=== PATIENT | female | born 1995 | race African-American/Black ===

== ENCOUNTER 2017-06-07 18:53 | Outpatient (CLI) | payer OTHER ==
[2017-06-07] MEDS ORDERED: RINGERS SOLUTION,LACTATED 1,000 ML IV PRN (19:34)
[2017-06-07 20:01] LABS: APPEARANCE,URINE SLIGHTLY-CLOUDY; BILIRUBIN,URINE NEGATIVE (NEGATIVE); GLUCOSE, URINE 50 mg/dL (NEGATIVE); KETONES,URINE NEGATIVE (NEGATIVE); LEUKOCYTE ESTERASE,URINE LARGE (NEGATIVE); NITRITE,URINE NEGATIVE (NEGATIVE); PROTEIN,URINE NEGATIVE (NEGATIVE); URINE SPECIFIC GRAVITY 1.016
[2017-06-07 20:27] LABS: URINE BARBITURATES SCREEN NEGATIVE; URINE METHADONE SCREEN NEGATIVE; URINE OPIATES LOW NEGATIVE; URINE PHENCYCLIDINE SCREEN NEGATIVE
--- NOTE | 2017-06-07 20:53 | Non Stress Test Report ---
Non Stress Test Datetime Report Generated by CPN: 06/07/2017 20:53 DEMOGRAPHIC EGA NST: 32.5 INDICATION Indication for Study: Ordered by Provider MONITORING Monitor Explained: Monitor Explained; Test Explained; Patient Verbalized Understanding Time on Monitor: 06/07/2017 19:13 Time off Monitor: 06/07/2017 20:38 NST Duration: 85 NST INTERVENTIONS NST Interventions: PO Hydration; Reposition Patient Physician Notified NST: Dr. Donato BABY A: [id number] BABY A Movement : Present Contraction Frequency : Irregular FHR Baseline : 135 Accelerations : 15X15 Decelerations : None Variability : Moderate 6-25bpm NST Review: Meets Criteria for Reactive NST NST Review and Verified By : Van Arnett RN NST Results: Reactive NST REPORT Report Trigger: Send Report
== END 2017-06-07 20:45 | disposition home or self-care (01) ==
LOC: LC 18:53
PROVIDERS: ATTEND Obstetrics & Gynecology
PROC: 4A1HXCZ Monitoring of Products of Conception, Cardiac Rate, External Approach (ICD-10-PCS; principal; 2017-06-07)
DX: Z34.93 Encounter for supervision of normal pregnancy, unspecified, third trimester (principal)
CPT/HCPCS: 59025; 80307; 81001

== ENCOUNTER 2017-07-13 16:38 | Outpatient (CLI) | payer OTHER ==
--- NOTE | 2017-07-13 17:54 | Non Stress Test Report ---
Non Stress Test Datetime Report Generated by CPN: 07/13/2017 17:54 DEMOGRAPHIC EGA NST: 37.6 EGA NST: 35.0 INDICATION Indication for Study: Decreased Movement Indication for Study: Ordered by Provider MONITORING Monitor Explained: Monitor Explained; Test Explained; Patient Verbalized Understanding Monitor Explained: Monitor Explained; Test Explained; Patient Verbalized Understanding Monitor Explained Other: see flowsheet Time on Monitor: 07/13/2017 16:51 Time on Monitor: 06/23/2017 18:03 Time off Monitor: 07/13/2017 17:46 Time off Monitor: 06/23/2017 18:29 NST Duration: 55 NST Duration: 26 NST INTERVENTIONS NST Interventions: PO Hydration NST Interventions: PO Hydration; Reposition Patient Physician Notified NST: CDemian CNM Physician Notified NST: Dr. Yusuf BABY A: [id number] BABY A Movement : Present Movement : Present Contraction Frequency : occasional FHR Baseline : 135 Accelerations : 15X15 Decelerations : None Decelerations : None Variability : Moderate 6-25bpm Variability : Moderate 6-25bpm NST Review: Meets Criteria for Reactive NST NST Results: Reactive NST REPORT Report Trigger: Send Report
== END 2017-07-13 17:49 | disposition home or self-care (01) ==
LOC: LC 16:38
PROVIDERS: ATTEND Obstetrics & Gynecology
PROC: 4A1HXCZ Monitoring of Products of Conception, Cardiac Rate, External Approach (ICD-10-PCS; principal; 2017-07-13)
DX: O36.8130 Decreased fetal movements, third trimester, not applicable or unspecified (principal); Z3A.37 37 weeks gestation of pregnancy
CPT/HCPCS: 59025

== ENCOUNTER 2017-07-22 08:38 | Outpatient (CLI) | payer SELFPAY ==
[2017-07-22 09:18] LABS: APPEARANCE,URINE SLIGHTLY-CLOUDY; BILIRUBIN,URINE NEGATIVE (NEGATIVE); GLUCOSE, URINE NEGATIVE (NEGATIVE); KETONES,URINE NEGATIVE (NEGATIVE); LEUKOCYTE ESTERASE,URINE NEGATIVE (NEGATIVE); NITRITE,URINE NEGATIVE (NEGATIVE); PROTEIN,URINE NEGATIVE (NEGATIVE); URINE SPECIFIC GRAVITY 1.013; UROBILINOGEN,URINE NEGATIVE mg/dL (<2.0)
[2017-07-22 09:33] LABS: URINE BARBITURATES SCREEN NEGATIVE; URINE METHADONE SCREEN NEGATIVE; URINE OPIATES LOW NEGATIVE; URINE PHENCYCLIDINE SCREEN NEGATIVE
--- NOTE | 2017-07-22 11:14 | Non Stress Test Report ---
Non Stress Test Datetime Report Generated by CPN: 07/22/2017 11:14 DEMOGRAPHIC Test Number: 2 EGA NST: 39.1 INDICATION Indication for Study: Other Indication for Study (NST) Other: Contractions MONITORING Monitor Explained: Monitor Explained; Test Explained; Patient Verbalized Understanding Time on Monitor: 07/22/2017 08:54 Time off Monitor: 07/22/2017 09:43 NST Duration: 49 NST INTERVENTIONS NST Interventions: PO Hydration Physician Notified NST: Dr. Rashawn BABY A: [id number] BABY A Movement : Present Contraction Frequency : 5-7 FHR Baseline : 140 Accelerations : 15X15 Decelerations : None Variability : Moderate 6-25bpm NST Review: Meets Criteria for Reactive NST NST Review and Verified By : Charly Sesay RN NST Results: Reactive NST REPORT Report Trigger: Send Report
== END 2017-07-22 10:56 | disposition home or self-care (01) ==
LOC: LC 08:38
PROVIDERS: ATTEND Obstetrics & Gynecology
PROC: 4A1HXCZ Monitoring of Products of Conception, Cardiac Rate, External Approach (ICD-10-PCS; principal; 2017-07-22)
DX: O47.1 False labor at or after 37 completed weeks of gestation (principal); Z3A.39 39 weeks gestation of pregnancy
CPT/HCPCS: 59025; 80307; 81005

== ENCOUNTER 2017-07-23 21:32 | Outpatient (CLI) | payer OTHER ==
[2017-07-23 22:07] LABS: BILIRUBIN,URINE NEGATIVE (NEGATIVE); GLUCOSE, URINE NEGATIVE (NEGATIVE); KETONES,URINE NEGATIVE (NEGATIVE); LEUKOCYTE ESTERASE,URINE LARGE (NEGATIVE); NITRITE,URINE NEGATIVE (NEGATIVE); PROTEIN,URINE 30 mg/dL (NEGATIVE); URINE SPECIFIC GRAVITY 1.014
[2017-07-23 22:10] LABS: APPEARANCE,URINE SLIGHTLY HAZY
[2017-07-23 22:26] LABS: URINE BARBITURATES SCREEN NEGATIVE; URINE METHADONE SCREEN NEGATIVE; URINE OPIATES LOW NEGATIVE; URINE PHENCYCLIDINE SCREEN NEGATIVE
== END 2017-07-23 23:02 | disposition home or self-care (01) ==
LOC: LC 21:32
PROVIDERS: ATTEND Obstetrics & Gynecology
PROC: 4A1HXCZ Monitoring of Products of Conception, Cardiac Rate, External Approach (ICD-10-PCS; principal; 2017-07-23)
DX: O47.1 False labor at or after 37 completed weeks of gestation (principal); Z3A.39 39 weeks gestation of pregnancy
CPT/HCPCS: 59025; 80307; 81005

== ENCOUNTER 2017-07-24 22:15 | Outpatient (CLI) | payer OTHER ==
--- NOTE | 2017-07-24 22:20 | Non Stress Test Report ---
Non Stress Test Datetime Report Generated by CPN: 07/24/2017 22:20 DEMOGRAPHIC EGA NST: 39.2 INDICATION Indication for Study: Ordered by Provider MONITORING Monitor Explained: Monitor Explained; Test Explained; Patient Verbalized Understanding Time on Monitor: 07/23/2017 21:46 Time off Monitor: 07/23/2017 22:22 NST Duration: 36 NST INTERVENTIONS NST Interventions: PO Hydration Physician Notified NST: Dr. Rashawn BABY A: [id number] BABY A Movement : Present Contraction Frequency : 5 FHR Baseline : 150 Accelerations : 15X15 Decelerations : None Variability : Moderate 6-25bpm NST Review: Meets Criteria for Reactive NST NST Review and Verified By : KARMA WYLIE Results: Reactive NST REPORT Report Trigger: Send Report
[2017-07-24 22:48] LABS: APPEARANCE,URINE SLIGHTLY-CLOUDY; BILIRUBIN,URINE NEGATIVE (NEGATIVE); GLUCOSE, URINE NEGATIVE (NEGATIVE); KETONES,URINE NEGATIVE (NEGATIVE); LEUKOCYTE ESTERASE,URINE TRACE (NEGATIVE); NITRITE,URINE NEGATIVE (NEGATIVE); PROTEIN,URINE 30 mg/dL (NEGATIVE); URINE SPECIFIC GRAVITY 1.021; UROBILINOGEN,URINE NEGATIVE mg/dL (<2.0)
[2017-07-24 22:50] LABS: AMNISURE (ROM) NEGATIVE (NEGATIVE)
[2017-07-24 22:58] LABS: URINE BARBITURATES SCREEN NEGATIVE; URINE METHADONE SCREEN NEGATIVE; URINE OPIATES LOW NEGATIVE; URINE PHENCYCLIDINE SCREEN NEGATIVE
--- NOTE | 2017-07-24 23:37 | Non Stress Test Report ---
Non Stress Test Datetime Report Generated by CPN: 07/24/2017 23:37 DEMOGRAPHIC Test Number: 5 EGA NST: 39.3 INDICATION Indication for Study: Ordered by Provider VITAL SIGNS Temperature - NST: 98.3 RESP - NST: 18 URINE RESULTS Urine Protein, NST: Positive Urine Ketones - NST: Negative Urine Glucose - NST: Negative Urine Blood - NST: Negative MONITORING Monitor Explained: Monitor Explained; Test Explained; Patient Verbalized Understanding Time on Monitor: 07/24/2017 22:39 Time off Monitor: 07/24/2017 22:34 NST Duration: -5 NST INTERVENTIONS NST Interventions: PO Hydration Physician Notified NST: Dr Yusuf BABY A Movement : Present Contraction Frequency : Irregular FHR Baseline : 120 Accelerations : 15X15 Decelerations : None Variability : Moderate 6-25bpm NST Review and Verified By : Jaleel Davis, RN NST Results: Reactive NST REPORT Report Trigger: Send Report
== END 2017-07-24 23:39 | disposition home or self-care (01) ==
LOC: LC 22:15
PROVIDERS: ATTEND Student in an Organized Health Care Education/Training Program
PROC: 4A1HXCZ Monitoring of Products of Conception, Cardiac Rate, External Approach (ICD-10-PCS; principal; 2017-07-24)
DX: O47.1 False labor at or after 37 completed weeks of gestation (principal); Z3A.39 39 weeks gestation of pregnancy
CPT/HCPCS: 59025; 80307; 81001; 84112

== ENCOUNTER 2017-07-28 01:59 | Inpatient (IN) | payer OTHER ==
[2017-07-28] MEDS ORDERED: ONDANSETRON 4 MG TAB.RAPDIS ONE (02:50)
[2017-07-28 02:57] LABS: APPEARANCE,URINE CLEAR; BILIRUBIN,URINE NEGATIVE (NEGATIVE); GLUCOSE, URINE NEGATIVE (NEGATIVE); KETONES,URINE NEGATIVE (NEGATIVE); LEUKOCYTE ESTERASE,URINE TRACE (NEGATIVE); NITRITE,URINE NEGATIVE (NEGATIVE); PROTEIN,URINE NEGATIVE (NEGATIVE); URINE SPECIFIC GRAVITY 1.006; UROBILINOGEN,URINE NEGATIVE mg/dL (<2.0)
[2017-07-28 02:59] LABS: URINE BARBITURATES SCREEN NEGATIVE; URINE METHADONE SCREEN NEGATIVE; URINE OPIATES LOW NEGATIVE; URINE PHENCYCLIDINE SCREEN NEGATIVE
[2017-07-28] MEDS ORDERED: HYDROXYZINE PAMOATE 50 MG CAPSULE ONE (03:28)
[2017-07-28] MEDS ORDERED: MORPHINE SULFATE 10 MG/ML INJ ONE (03:40)
[2017-07-28] MEDS ORDERED: MISOPROSTOL 0.2 MG TABLET ONE (03:47)
[2017-07-28] MEDS ORDERED: LIDOCAINE 1% INJ-PF (10 MG/ML) 30 ML SDV ONE (03:47)
[2017-07-28] MEDS ORDERED: OXYTOCIN/NORMAL SALINE 20 UNIT/1,000 ML RTUINJ ONE (03:47)
[2017-07-28] MEDS ORDERED: OXYTOCIN 10 UNIT/ML VIAL ONE (03:47)
[2017-07-28] MEDS ORDERED: RINGERS SOLUTION,LACTATED 1,000 ML IV PRN (03:50)
[2017-07-28] MEDS ORDERED: RINGERS SOLUTION,LACTATED 1,000 ML IV ONE (03:50)
[2017-07-28] MEDS ORDERED: EPHEDRINE SULFATE INJ 50 MG/1 ML AMPULE ONE (04:19)
[2017-07-28 04:20] LABS: ABSOLUTE BASOPHILS # (AUTO) 0.1 10^3/uL (0.0-0.2); ABSOLUTE EOSINOPHILS # (AUTO) 0.1 10^3/uL (0.0-0.6); ABSOLUTE LYMPHOCYTES (AUTO) 2.4 10^3/uL (0.5-4.7); ABSOLUTE MONOCYTES (AUTO) 0.7 10^3/uL (0.1-1.4); ABSOLUTE NEUT (AUTO) 7.2 10^3/uL (1.7-8.2); BASOPHILS % (AUTO) 0.7 % (0-2); EOSINOPHILS % (AUTO) 1.1 % (0-6); HEMATOCRIT 28.4 % (36.0-47.0); HEMOGLOBIN 9.1 g/dL (12.0-15.5); HGB HCT DIFFERENCE -1.1; LYMPHOCYTES % (AUTO) 23.1 % (13-45); MEAN CORPUSCULAR HEMOGLOBIN 28.6 pg (27.0-33.4); MEAN CORPUSCULAR HGB CONC 32.2 g/dL (32.0-36.0); MEAN CORPUSCULAR VOLUME 89 fl (80-97); MONOCYTES % (AUTO) 6.4 % (3-13); RED CELL DISTRIBUTION WIDTH 18.6 % (11.5-14.0); SEGMENTED NEUTROPHILS % (AUTO) 68.7 % (42-78); WHITE BLOOD COUNT 10.5 10^3/uL (4.0-10.5)
[2017-07-28] MEDS ORDERED: BUPIVACAINE HCL 0.25 % INJ/PF (2.5 MG/1 ML) 30 ML VIAL ONE (04:20)
[2017-07-28] MEDS ORDERED: FENTANYL/BUPIVACAINE/NS/PF 200 MCG/100 ML RTUINJ EPI ONE (04:20)
[2017-07-28] MEDS ORDERED: DIBUCAINE 1% OINTMENT 28 GM TP PRN (07:06)
[2017-07-28] MEDS ORDERED: OXYTOCIN/NORMAL SALINE 20 UNIT/1,000 ML RTUINJ IV PRN (07:06)
[2017-07-28] MEDS ORDERED: ACETAMINOPHEN 650 MG SUPP.RECT PR PRN (07:06)
[2017-07-28] MEDS ORDERED: DIPH/PERTUSS(ACELL)/TETANUS VAC/PF 0.5 ML SYR (>=10YO) IM PRN (07:06)
[2017-07-28] MEDS ORDERED: PROMETHAZINE HCL 25 MG SUPP.RECT PR PRN (07:06)
[2017-07-28] MEDS ORDERED: GLYCERIN/WITCH HAZEL LEAF 1 EACH MED..PAD TP PRN (07:06)
[2017-07-28] MEDS ORDERED: NA PHOS,M-B/NA PHOS,DI-BA (ADULT) 133 ML ENEMA PR PRN (07:06)
[2017-07-28] MEDS ORDERED: PROMETHAZINE HCL INJ 25 MG/1 ML VIAL IV PRN (07:06)
[2017-07-28] MEDS ORDERED: ZOLPIDEM TARTRATE 5 MG TABLET PO PRN (07:06)
[2017-07-28] MEDS ORDERED: DIPHENHYDRAMINE HCL 25 MG CAPSULE PO PRN (07:06)
[2017-07-28] MEDS ORDERED: PSEUDOEPHEDRINE HCL 30 MG TABLET PO PRN (07:06)
[2017-07-28] MEDS ORDERED: MEASLES,MUMPS&RUBELLA VACC/PF 0.5 ML VIAL SUBCUT PRN (07:06)
[2017-07-28] MEDS ORDERED: MAGNESIUM HYDROXIDE SUSP 30 ML UDCUP PO PRN (07:06)
[2017-07-28] MEDS ORDERED: BENZOCAINE/MENTHOL AEROSOL SPRAY 56 ML TOP PRN (07:06)
[2017-07-28] MEDS ORDERED: ACETAMINOPHEN WITH CODEINE #3 TABLET PO PRN (07:06)
[2017-07-28] MEDS ORDERED: PROMETHAZINE HCL 25 MG TABLET PO PRN (07:06)
--- NOTE | 2017-07-28 09:06 | Delivery Summary ---
Del Sum A-C Datetime Report Generated by CPN: 07/28/2017 09:05 DELIVERY PERSONNEL DELIVERY PERSONNEL: [id number] Delivery Doctor:: Sandra Morocho MD Labor and Delivery Nurse:: Xiomara Isaac RN Labor and Delivery Nurse:: Adeola Swan RN Manager Electronic/FUNERAL ARRANGER: Tiffany Wilfredo, ST MATERNAL INFORMATION Delivery Anesthesia: Epidural Medications After Delivery: Pitocin Bolus-Please Comment Meds After Delivery Comment: Pitocin 20units/1000ml bolused after delivery per protocol. Estimated Blood Loss (ml): 150 Maternal Complications: None LABOR SUMMARY EDC: 07/28/2017 00:00 No. Babies in Womb: 1 Attempted: No Labor Anesthesia: Epidural LABOR INFORMATION Reason for Induction: Not Applicable Onset of Labor: 07/28/2017 03:45 Complete Dilatation: 07/28/2017 06:39 Oxytocin: N/A Group B Beta Strep: Negative Antibiotics # of Doses: 0 Antibiotics Time of Last Dose: N/A Name of Antibiotic Given: N/A Steroids Given: None Reason Steroids Not Administered: Not Applicable MEMBRANES Membranes Rupture Method: Artificial Rupture of Membranes: 07/28/2017 05:33 Length of Rupture (hr): 1.28 Amniotic Fluid Color: Clear Amniotic Fluid Amount: Moderate Amniotic Fluid Odor: Normal STAGES OF LABOR Stage 1 hr: 2 Stage 1 min: 54 Stage 2 hr: 0 Stage 2 min: 11 Stage 3 hr: 0 Stage 3 min: 3 Total Time in Labor hr: 3 Total Time in Labor min: 8 VAGINAL DELIVERY Episiotomy: None Laceration #1: None Laceration Extension #1: N/A Laceration Repair: Not Applicable Sponge Count Correct: N/A Sharps Count Correct: N/A CSECTION DELIVERY Primary Indication: N/A Secondary Indication: N/A CSection Incidence: N/A Labor: N/A Elective: N/A CSection Incision: N/A BABY A INFORMATION Infant Delivery Date/Time: 07/28/2017 06:50 Method of Delivery: Vaginal Born in Route : No : N/A Forceps: N/A Vacuum Extraction: N/A Shoulder Dystocia : No PRESENTATION/POSITION BABY A Presentation: Cephalic Cephalic Presentation: Vertex Vertex Position: Right Occipital Anterior Breech Presentation: N/A PLACENTA INFORMATION BABY A Placenta Delivery Time : 07/28/2017 06:53 Placenta Method of Delivery: Spontaneous Placenta Status: Delivered SCORES BABY A Heart Rate 1 min: >100 bpm Resp Effort 1 min: Good Cry Reflex Irritability 1 min: Cough or Sneeze or Pulls Away Muscle Tone 1 min: Active Motion Color 1 min: Body [place], Extremities Blue Resuscitation Effort 1 min: Tactile Stimulation SCORE 1 MIN: 9 Heart Rate 5 min: >100 bpm Resp Effort 5 min: Good Cry Reflex Irritability 5 min: Cough or Sneeze or Pulls Away Muscle Tone 5 min: Active Motion Color 5 min: Body [place], Extremities Blue SCORE 5 MIN: 9 INFORMATION BABY A Gestational Age at Delivery: 40.0 Gestational Status: Full Term- 39- 40.6 Weeks Outcome : Liveborn Infant Condition : Stable Infant Sex: Female IDENTIFICATION BABY A Infant Verification Date/Time: 07/28/2017 07:02 ID Band Number: [id number] Mother's Name Verified: Yes RN Verifying Infant: Jaleel Davis RN Additional Verifying Personnel: Davey Cain RN WEIGHT/LENGTH BABY A Birthweight (gm): 2580 Infant Weight (lb): 5 Infant Weight (oz): 11 Length (in): 19.00 Infant Length (cm): 48.26 CORD INFORMATION BABY A No. Cord Vessels: 3 Nuchal Cord : N/A Cord Blood Taken: Yes-For Eval (Mom's Blood Type - or O+) Suction: Mouth; Nose ASSESSMENT BABY A Infant Complications: None Physical Findings at Delivery: Within Normal Limits Respirations: Appears Normal Skin to Skin: Yes [employer] Media Specialist/ALS Called : No Infant Care By: AndreeLeslie Sosa, RN Transferred To: Remains with Mother BABY B INFORMATION : N/A SIGNATURES Signature: with User ID: Scott
--- NOTE | 2017-07-28 09:08 | Admission Physical ---
Datetime Report Generated by CPN: 07/28/2017 09:07 CURRENT ADMISSION Chief Complaint: Uterine Contractions Indication for Induction: Not Applicable Indication for Induction: Term, Intrauterine ; Active Labor Admit Plan: Admit to Unit; Initiate Labor Protocol ALLERGIES Medication Allergies: No Medication Allergies: No Known Allergies (07/28/2017) Medication Allergies: No Known Allergies (07/23/2017) Medication Allergies: No Known Allergies (07/22/2017) Medication Allergies: No Known Allergies (07/13/2017) Medication Allergies: No Known Allergies (06/23/2017) Medication Allergies: No Known Allergies (06/07/2017) Medication Allergies: No Known Allergies (06/24/2015) Latex: No Latex Allergies Food Allergies: N/A Environmental Allergies: N/A OBSTETRICAL HISTORY EDC: 07/28/2017 00:00 : 3 Para: 1 Term: 1 : 0 SAB: 1 IAB: 0 Ectopic: 0 Livin Cesareans: 0 VBACs: 0 Multiple Births: 0 Gestational Diabetes: No Rh Sensitization: No Incompetent Cervix: No NAIMA: No Infertility: No ART Treatment: No Uterine Anomaly: No IUGR: No Hx Previous C/S: No Macrosomia: No Hx Loss/Stillborn: No PIH: No Hx : No Placenta Previa/Abruption: No Depression/PP Depression: No PTL/PROM: No Post Hemorrhage: No Current Procedures: Ultrasound Obstetrical History Comments: G1 - 2014, 39.5 weeks, , baby boy G2 - 2016, 8 weeks SAB G3 - Current SEE RECORDS Alcohol: No Marijuana : No Cocaine: No Other Illicit Drugs: No Cigarettes: Never Smoker. [id number] MEDICAL HISTORY Diabetes: No Blood Transfusion: No Pulmonary Disease (Asthma, TB): No Breast Disease: No Hypertension: No Entertainment Director Surgery: No Heart Disease: No Hosp/Surgery: Yes Autoimmune Disorder: No Anesthetic Complications: No Kidney Disease: No Abnormal Pap Smear: No Neuro/Epilepsy: No Psychiatric Disorders: No Other Medical Diseases: No Hepatitis/Liver Disease: No Significant Family History: No Varicosities/Phlebitis: No Trauma/Violence : No Thyroid Dysfunction: Yes Medical History Comments: childbirth; hypothyroidism-takes Synthroid INFECTIOUS HISTORY Gonorrhea: No Genital Herpes: No Chlamydia: Yes Tuberculosis: No Syphilis: No Hepatitis: No HIV/AIDS Exposure: No Rash or Viral Illness: No HPV: No Infectious History Comments: + Chlamydia this pregnacy-MARTHA neg on 07/18/17 PHYSICAL EXAM General: Normal HEENT: Normal Neurologic: Normal Thyroid: Normal Heart: Normal Lungs: Normal Breast: Normal Back: Normal Abdomen: Normal Genitourinary Exam: Normal Extremities: Normal DTRs: Normal Pelvic Type: Adequate Vital Signs: Reviewed VAGINAL EXAM Dilatation: 8 Effacement: 80 Station: -1 MEMBRANES Pooling: Positive Membranes: Ruptured Amniotic Fluid Color: Clear FETUS A EGA: 40.0 Monitoring: External US FHR- Baseline: 130 Variability: Moderate 6-25bpm Accelerations: 15X15 Decelerations: None FHR Category: Category I Estimated Weight (gm): 3500 Presentation: Vertex PLANS FOR LABOR AND DELIVERY Labor and Delivery: None Pain Management: Epidural Feeding Preference: Breast Benefit of Breast Feed Discussed: Yes Circumcision: N/A INFORMED CONSENT Signature: with User ID: [email or web address]
[2017-07-28] MEDS: SENNOSIDES/DOCUSATE 8.6-50 MG 1 EACH TABLET PO SCH (09:17)
[2017-07-28] MEDS: PRENATAL VITAMIN W DHA CAPSULE PO SCH (09:17)
[2017-07-28] MEDS: DOCUSATE SODIUM 100 MG CAPSULE PO SCH ×2 (09:17→17:44)
[2017-07-28] MEDS: FAMOTIDINE 20 MG TABLET PO SCH ×2 (09:17→21:47)
[2017-07-28] MEDS: FERROUS SULFATE 325 MG TABLET PO SCH ×2 (09:18→17:43)
[2017-07-28] MEDS ORDERED: INFLUENZA ADLT QUAD (36MOS+) 2017-18 VAC 0.5 ML SYR IM PRN (11:10)
[2017-07-28] MEDS: IBUPROFEN 800 MG TABLET PO SCH ×2 (14:33→21:47)
[2017-07-28] MEDS: ACETAMINOPHEN WITH CODEINE #3 TABLET PO PRN (20:48)
[2017-07-29] MEDS: ACETAMINOPHEN WITH CODEINE #3 TABLET PO PRN (01:46)
[2017-07-29] MEDS: IBUPROFEN 800 MG TABLET PO SCH ×3 (06:19→21:33)
[2017-07-29 07:22] LABS: HEMATOCRIT 22.8 % (36.0-47.0); HGB HCT DIFFERENCE -0.6; MEAN CORPUSCULAR HGB CONC 32.4 g/dL (32.0-36.0); MEAN CORPUSCULAR VOLUME 90 fl (80-97); RED BLOOD COUNT 2.54 10^6/uL (3.72-5.28); RED CELL DISTRIBUTION WIDTH 18.3 % (11.5-14.0); WHITE BLOOD COUNT 16.1 10^3/uL (4.0-10.5)
[2017-07-29 07:50] LABS: HEMOGLOBIN 7.4 g/dL (12.0-15.5)
[2017-07-29] MEDS: FAMOTIDINE 20 MG TABLET PO SCH ×2 (09:44→21:33)
[2017-07-29] MEDS: PRENATAL VITAMIN W DHA CAPSULE PO SCH (09:44)
[2017-07-29] MEDS: SENNOSIDES/DOCUSATE 8.6-50 MG 1 EACH TABLET PO SCH (09:44)
[2017-07-29] MEDS: FERROUS SULFATE 325 MG TABLET PO SCH ×2 (09:44→18:38)
[2017-07-29] MEDS: DOCUSATE SODIUM 100 MG CAPSULE PO SCH ×2 (09:44→18:38)
--- NOTE | 2017-07-29 09:51 | PDOC PROGRESS REPORT ---
Subjective-OB Subjective: Post Delivery Day: 21 year old. Denies any needs at this time Physical Exam (OB) Vital Signs: Temp Pulse Resp BP Pulse Ox 97.9 F 59 L 15 137/87 H 100 07/29/17 08:03 07/29/17 08:03 07/29/17 08:03 07/29/17 08:03 07/29/17 08:03 Intake & Output 07/28/17 07/29/17 07/30/17 06:59 06:59 06:59 Intake Total 500 Balance 500 Weight 67.45 kg - Abdomen Description: Soft Hernia Present: No Fundal Description: Firm, Midline Fundal Height: u/u - u/2 - Abdominal Tenderness: Nontender - Extremities Lower extremities: Dhaval's sign - neg Calf: Nontender Objective-Diagnostic Laboratory: 07/29/17 06:52 07/29/17 06:52 WBC 16.1 H RBC 2.54 L Hgb 7.4 L Hct 22.8 L MCV 90 MCH 29.0 MCHC 32.4 RDW 18.3 H Plt Count 218 Assessment and Plan(PN) - Assessment and Plan (1) Anemia Is this a current diagnosis for this admission?: Yes (2) Delivery normal Is this a current diagnosis for this admission?: Yes - Time Spent with Patient Time with patient: Less than 15 minutes - Disposition Anticipated Discharge: Home Within: within 24 hours
--- NOTE | 2017-07-29 10:02 | Progress Note ---
Provider Note Provider Note: H&H=7.4/22.8, pulse normal. denies MAGAÑA/SOB/ringing in ears/dizziness. does report fatigue; instructed to report any other sx. plan to repeat CBC in AM.
[2017-07-30 06:48] LABS: HEMATOCRIT 22.9 % (36.0-47.0); HGB HCT DIFFERENCE -1.3; MEAN CORPUSCULAR HEMOGLOBIN 28.3 pg (27.0-33.4); MEAN CORPUSCULAR HGB CONC 31.7 g/dL (32.0-36.0); MEAN CORPUSCULAR VOLUME 89 fl (80-97); RED BLOOD COUNT 2.56 10^6/uL (3.72-5.28); RED CELL DISTRIBUTION WIDTH 17.9 % (11.5-14.0); WHITE BLOOD COUNT 17.1 10^3/uL (4.0-10.5)
[2017-07-30 07:04] LABS: HEMOGLOBIN 7.2 g/dL (12.0-15.5)
[2017-07-30 07:26] LABS: ABSOLUTE EOSINOPHILS# (MANUAL) 0.2 10^3/uL (0.0-0.6); BASOPHILS % (MANUAL) 1 % (0-2); EOSINOPHILS % (MANUAL) 1 % (0-6); LYMPHOCYTES % (MANUAL) 14 % (13-45); NUCLEATED RED BLOOD CELLS 2 /100 WBC (0); TOTAL CELLS COUNTED 100
[2017-07-30 07:27] LABS: ANISOCYTOSIS 1+; HYPOCHROMASIA 1+; OVALOCYTES SLIGHT; POIKILOCYTOSIS 1+; POLYCHROMASIA SLIGHT
[2017-07-30 07:28] LABS: TARGET CELLS SLIGHT; TEAR DROP CELLS SLIGHT
[2017-07-30 08:39] VITALS: BP 127/79
--- NOTE | 2017-07-30 08:59 | PDOC DISCHARGE SUMMARY ---
Final Diagnosis Discharge Date: 07/30/17 - Final Diagnosis (1) Anemia Is this a current diagnosis for this admission?: Yes (2) Delivery normal Is this a current diagnosis for this admission?: Yes Discharge Data - Discharge Medication Home Medications: Pnv,Calcium 72/Iron/Folic Acid [Pnv Plus Multivit Tab] 1 tab PO DAILY 06/21/15 Docusate Sodium [Colace 100 mg Capsule] 100 mg PO BID capsule 07/30/17 Ferrous Sulfate [Feosol 325 mg Tablet] 325 mg PO BID tablet 07/30/17 Ibuprofen [Motrin 800 mg Tablet] 800 mg PO Q8 #60 tablet 07/30/17 Gestational Age: 39+4 Reason(s) for Admission: Onset of Labor Intrapartum Procedure(s): Spontaneous Vaginal Delivery - Diagnosis Test Laboratory: Temp Pulse Resp BP Pulse Ox 98.3 F 64 16 127/79 H 100 07/30/17 08:13 07/30/17 08:13 07/30/17 08:13 07/30/17 08:13 07/30/17 08:13 07/28/17 07/28/17 07/29/17 02:10 04:10 06:52 RBC 3.20 L 2.54 L Hgb 9.1 L 7.4 L Hct 28.4 L 22.8 L Urine Opiates Screen NEGATIVE 07/30/17 05:55 RBC 2.56 L Hgb 7.2 L Hct 22.9 L Urine Opiates Screen - Discharge information/Instructions Discharge Activity: Balance Activity w/Rest, Pelvic Rest Discharge Diet: Regular Disposition: HOME, SELF-CARE Follow up with: [facility] in: 4, Weeks
--- NOTE | 2017-07-30 09:00 | PDOC PROGRESS REPORT ---
Subjective-OB Subjective: Post Delivery Day: 21 year old. Denies any needs at this time Physical Exam (OB) Vital Signs: Temp Pulse Resp BP Pulse Ox 98.3 F 64 16 127/79 H 100 07/30/17 08:13 07/30/17 08:13 07/30/17 08:13 07/30/17 08:13 07/30/17 08:13 Intake & Output 07/29/17 07/30/17 07/31/17 06:59 06:59 06:59 Intake Total 500 Balance 500 - Abdomen Description: Soft Hernia Present: No Fundal Description: Firm, Midline Fundal Height: u/u - u/2 - Abdominal Tenderness: Nontender - Extremities Lower extremities: Dhaval's sign - neg Calf: Nontender Objective-Diagnostic Laboratory: 07/30/17 05:55 07/30/17 05:55 WBC 17.1 H RBC 2.56 L Hgb 7.2 L Hct 22.9 L MCV 89 MCH 28.3 MCHC 31.7 L RDW 17.9 H Plt Count 218 Seg Neutrophils % Not Reportable Lymphocytes % Not Reportable Monocytes % Not Reportable Eosinophils % Not Reportable Basophils % Not Reportable Absolute Neutrophils Not Reportable Absolute Lymphocytes Not Reportable Absolute Monocytes Not Reportable Absolute Eosinophils Not Reportable Absolute Basophils Not Reportable Assessment and Plan(PN) - Assessment and Plan (1) Anemia Is this a current diagnosis for this admission?: Yes (2) Delivery normal Is this a current diagnosis for this admission?: Yes - Disposition Anticipated Discharge: Home
[2017-07-30] MEDS: PRENATAL VITAMIN W DHA CAPSULE PO SCH (09:17)
[2017-07-30] MEDS: SENNOSIDES/DOCUSATE 8.6-50 MG 1 EACH TABLET PO SCH (09:17)
[2017-07-30] MEDS: FERROUS SULFATE 325 MG TABLET PO SCH (09:17)
[2017-07-30] MEDS: DOCUSATE SODIUM 100 MG CAPSULE PO SCH (09:18)
[2017-07-30] MEDS: FAMOTIDINE 20 MG TABLET PO SCH (09:18)
[2017-07-30] MEDS: IBUPROFEN 800 MG TABLET PO SCH (09:18)
== END 2017-07-30 11:10 | disposition home or self-care (01) | DRG 775 ==
LOC: LC 01:59 → LR 03:49 → 2S 09:06
PROVIDERS: ADMIT Obstetrics & Gynecology; ATTEND Obstetrics & Gynecology
PROC: 10E0XZZ Delivery of Products of Conception, External Approach (ICD-10-PCS; principal; 2017-07-28)
PROC: 3E0234Z Introduction of Serum, Toxoid and Vaccine into Muscle, Percutaneous Approach (ICD-10-PCS; 2017-07-30)
DX: O99.284 Endocrine, nutritional and metabolic diseases complicating childbirth (principal); E03.9 Hypothyroidism, unspecified; O99.02 Anemia complicating childbirth; D64.9 Anemia, unspecified; Z3A.40 40 weeks gestation of pregnancy; Z37.0 Single live birth; Z23 Encounter for immunization
CPT/HCPCS: 36415; 80307; 81005; 85025; 85027; 86592; 86850; 86900; 86901; 90686; 90715; J2270; J2590; J3490; S0119